=== PATIENT | female | born 1950 | race Caucasian/White ===

== ENCOUNTER 2018-08-04 19:56 | Emergency (ER) | payer MEDICARE, OTHER ==
[~2018-08-04] VITALS: Ht 154.9 cm; Wt 46.8 kg
[~2018-08-04 19:56] MED LIST: ACET-48 PO; ATOR10TA69 PO; LORA10TA60 PO; METF-444 PO; OMEP20CA10 PO; SENN-136 PO
[2018-08-04 21:09] LABS: GLUCOSE,POINT OF CARE 93 MG/DL (70-110)
[2018-08-04] MEDS ORDERED: ACETAMINOPHEN 500 MG TABLET PO ONE (22:15)
[2018-08-04] MEDS ORDERED: METHOCARBAMOL 500 MG TABLET PO ONE (22:15)
[2018-08-05 01:00] VITALS: BP 104/52
== END 2018-08-05 01:15 | disposition home or self-care (01) ==
LOC: EMS 19:57
DX: S13.4XXA Sprain of ligaments of cervical spine, initial encounter (principal); E11.9 Type 2 diabetes mellitus without complications; Z88.6 Allergy status to analgesic agent; Z79.899 Other long term (current) drug therapy; V43.62XA Car passenger injured in collision with other type car in traffic accident, initial encounter; Y93.89 Activity, other specified; Y92.89 Other specified places as the place of occurrence of the external cause; Y99.8 Other external cause status
CPT/HCPCS: 70450; 72125